=== PATIENT | female | born 1940 | race Two or more races ===

== ENCOUNTER 2024-07-19 11:40 | Inpatient (IN) | payer MEDICARE, OTHER ==
[~2024-07-19] VITALS: Ht 149.9 cm; Wt 41.3 kg
[2024-07-19 11:40] VITALS: BP 149/89
[2024-07-19 12:59] VITALS: BP 149/89
[2024-07-20] MEDS ORDERED: HYDR20VI6 IV (14:45)
[2024-07-20] MEDS ORDERED: HYDR-4209 PO (14:45)
[2024-07-20] MEDS ORDERED: DEXT50DI8 IV (14:45)
[2024-07-20] MEDS ORDERED: SODI62.58 IV (14:45)
[2024-07-20] MEDS ORDERED: FAT250EM13 IV (14:45)
[2024-07-20] MEDS ORDERED: DOCU100T2 PO (14:45)
[2024-07-20] MEDS ORDERED: MORP1SYR2 IV (14:45)
[2024-07-20] MEDS ORDERED: POLY17PO4 PO (14:45)
[2024-07-20] MEDS ORDERED: NALO0.4D4 IV (14:45)
[2024-07-20] MEDS ORDERED: CALA180L4 TP (14:45)
[2024-07-20] MEDS ORDERED: CEFT1VIA15 IV (14:45)
[2024-07-20] MEDS ORDERED: BISO5TAB20 PO (14:45)
[2024-07-20] MEDS ORDERED: BISA5TAB56 PO (14:45)
[2024-07-20] MEDS ORDERED: OLAN2.5T3 PO (14:45)
[2024-07-20] MEDS ORDERED: ACET650S13 RC (14:45)
[2024-07-20] MEDS ORDERED: BISA10SU95 RC (14:45)
[2024-07-20] MEDS ORDERED: ENOX40DI SQ (15:00)
[2024-07-20] MEDS ORDERED: INSU100V28 SQ (15:00)
[2024-07-20] MEDS ORDERED: CALAMINE LOTION 120 ML BOTTLE TP PRN (16:15)
[2024-07-20] MEDS ORDERED: DEXTROSE 50% 50 ML DISP.SYRIN IV PRN ×2 (16:15→17:00)
[2024-07-20] MEDS ORDERED: BISACODYL 10 MG SUPP.RECT RC PRN ×2 (16:15→22:15)
[2024-07-20] MEDS ORDERED: BISACODYL 5 MG PO PRN (16:15)
[2024-07-20] MEDS ORDERED: TPN IV (16:36)
[2024-07-20] MEDS ORDERED: TPN/PPN PER PHARMACY IV PRN (16:45)
[2024-07-20 16:48] VITALS: BP 125/75; TEMP 97.9; O2SAT 97
[2024-07-20] MEDS ORDERED: IV FAT EMULSIONS 20% 250 ML IV SCH (17:00)
[2024-07-20] MEDS: DOCUSATE SODIUM 100 MG/10 ML LIQUID UDC PO SCH (17:00)
[2024-07-20] MEDS ORDERED: Medication Not On Formulary EA (Docusate Sodium 100 MG) PO SCH (17:00)
[2024-07-20] MEDS: DEXTROSE 5% IV SCH (18:30)
[2024-07-20] MEDS: [UNRECOGNIZED DRUG - OTHER] IV SCH (18:30)
[2024-07-20] MEDS: BLOOD SUGAR DIAGNOSTIC 1 EACH STRIP VI SCH (18:33)
[2024-07-20 20:09] VITALS: BP 125/70; TEMP 98; O2SAT 95
[2024-07-20] MEDS: OLANZAPINE 2.5 MG TABLET PO SCH (20:48)
[2024-07-20] MEDS: CEFTRIAXONE 1 G in IV DEXTROSE 5% 50 ML IV SCH (20:53)
[2024-07-20] MEDS: ENOXAPARIN SODIUM 30 MG/0.3 ML DISP.SYRIN SUBCUT SCH (21:20)
[2024-07-20] MEDS: SODIUM PHOSPHATE MM 15 MMOL in IV NORMAL SALINE 250 ML IV ONE (22:03)
[2024-07-21 05:13] VITALS: BP 125/68; TEMP 99.1; O2SAT 95
[2024-07-21] MEDS: INSULIN REGULAR, HUMAN 1000 UNIT/10 ML VIAL SQ PRN (05:17)
[2024-07-21 06:25] LABS: BASOPHILS # (AUTO) 0.1 K/UL (0.0-0.2); BASOPHILS % (AUTO) 0.9 % (0.0-2.0); EOSINOPHILS # (AUTO) 0.2 K/uL (0.0-0.7); EOSINOPHILS % (AUTO) 1.5 % (0.0-7.0); HEMOGLOBIN 10.7 g/dL (10.9-14.3); LYMPHOCYTES # (AUTO) 1.7 K/uL (0.8-4.8); LYMPHOCYTES % (AUTO) 13.9 % (20.5-51.5); MEAN CORPUSCULAR HEMOGLOBIN 28.9 uug (24.7-32.8); MEAN CORPUSCULAR HGB CONC 34 g/dL (32.3-35.6); MEAN CORPUSCULAR VOLUME 85.9 fL (75.5-95.3); MONOCYTES # (AUTO) 1.1 K/uL (0.1-1.30); MONOCYTES % (AUTO) 8.6 % (0.0-11.0); NEUTROPHILS # (AUTO) 9.3 K/uL (1.8-8.9); NEUTROPHILS % (AUTO) 75.1 % (38.5-71.5); PLATELET COUNT (AUTO) 402 K/uL (179-408); RED BLOOD CELL COUNT(AUTO) 3.72 MIL/uL (3.63-4.92); RED CELL DISTRIBUTION WIDTH 13.5 % (12.3-17.7); WHITE BLOOD COUNT (AUTO) 12.4 K/uL (3.8-11.8)
[2024-07-21 06:28] LABS: DIFFERENTIAL COMMENT 1
[2024-07-21 06:50] LABS: THYROID STIMULATING HORMONE 1.792 mIU/mL (0.358-3.740)
[2024-07-21 07:31] LABS: IRON, SERUM 43 ug/dL (50-175)
[2024-07-21 08:00] VITALS: BP 129/69; TEMP 98.6; O2SAT 97
[2024-07-21 08:36] LABS: ALANINE AMINOTRANSFERASE 15 U/L (14-59); ALBUMIN 2.3 g/dL (3.4-5.0); ALKALINE PHOSPHATASE 78 U/L (50-136); ASPARTATE AMINOTRANSFERASE 23 U/L (15-37); BILIRUBIN,TOTAL 0.5 mg/dL (0.2-1.0); CALCIUM 8.2 mg/dL (8.5-10.1); CARBON DIOXIDE 27 mmol/L (21-32); CHLORIDE 97 mmol/L (98-107); CHOLESTEROL 157 mg/dL (<200); CREATININE 0.5 mg/dL (0.6-1.3); GLUCOSE 130 mg/dL (74-106); HDL CHOLESTEROL 43 mg/dL (40-60); MAGNESIUM 1.8 mg/dL (1.8-2.4); PHOSPHOROUS 3.9 mg/dL (2.5-4.9); POTASSIUM 3.6 mmol/L (3.5-5.1); SODIUM SERUM 135 mmol/L (136-145); TOTAL PROTEIN, SERUM 6.7 g/dL (6.4-8.2); TRIGLYCERIDES 81 MG/DL (30-150); UREA NITROGEN, BLOOD 29 mg/dL (7-18)
[2024-07-21] MEDS ORDERED: ENOXAPARIN SODIUM 40 MG/0.4 ML DISP.SYRIN SQ SCH (09:00)
[2024-07-21] MEDS: MIRALAX 17 GM POWD.PACK PO SCH (09:26)
[2024-07-21] MEDS: ACETAMINOPHEN 650 MG SUPP.RECT RC PRN (09:26)
[2024-07-21] MEDS: TPN BAG#2 IV SCH (11:27)
[2024-07-21 20:30] VITALS: BP 129/82; TEMP 98.8; O2SAT 99
[2024-07-21] MEDS: TRAMADOL HCL 50 MG TABLET PO PRN (22:00)
[2024-07-21] MEDS: TPN BAG#3 IV SCH (22:22)
[2024-07-22 06:00] VITALS: BP 114/62; TEMP 98.1; O2SAT 98
[2024-07-22 07:09] LABS: CALCIUM 8.6 mg/dL (8.5-10.1); CARBON DIOXIDE 28 mmol/L (21-32); CHLORIDE 100 mmol/L (98-107); CREATININE 0.5 mg/dL (0.6-1.3); GLUCOSE 145 mg/dL (74-106); MAGNESIUM 1.9 mg/dL (1.8-2.4); POTASSIUM 3.9 mmol/L (3.5-5.1); SODIUM SERUM 134 mmol/L (136-145); UREA NITROGEN, BLOOD 31 mg/dL (7-18)
[2024-07-22 08:00] VITALS: BP 124/64; TEMP 97.9; O2SAT 94
[2024-07-22] MEDS: IV FAT EMULSIONS 20% 250 ML IV ONE (09:35)
[2024-07-22] MEDS: NEUTRA PHOS PACKET PO ONE (16:29)
[2024-07-22 18:38] VITALS: BP 146/78; TEMP 97.5; O2SAT 97
[2024-07-22 21:43] VITALS: BP 142/48; TEMP 98.2; O2SAT 95
[2024-07-22 23:33] LABS: *BILIRUBIN,URIN NEGATIVE (NEGATIVE); *CLARITY,URINE CLEAR (CLEAR); *COLOR,URINE YELLOW (YELLOW); *KETONES,URINE NEGATIVE (NEGATIVE); *PROTEIN,URINE 1+ (NEGATIVE); *UROBILINOGEN,URINE 0.2 E.U./dl (NORMAL); LEUKOCYTE ESTERASE ,URINE NEGATIVE (NEGATIVE); NITRITE, URINE NEGATIVE (NEGATIVE); PH,URINE 5.5 (5.0-8.0); UGLUCOSE NEGATIVE (NEGATIVE)
[2024-07-22 23:34] LABS: *BLOOD, URINE TRACE (NEGATIVE)
[2024-07-22 23:45] LABS: BACTERIA,URINE FEW /HPF (NONE SEEN); MUCUS,URINE MODERATE /LPF (0-FEW); RBC,URINE 0-3 /HPF (0-3); SQUAMOUS EPITHELIAL CELL,UR MODERATE /HPF (NONE SEEN); WBC,URINE NONE SEEN /HPF (0-3)
[2024-07-23 06:46] VITALS: BP 127/74; TEMP 99; O2SAT 98
[2024-07-23 08:00] VITALS: BP 130/71; TEMP 98.1; O2SAT 98
[2024-07-23] MEDS ORDERED: BLOOD SUGAR DIAGNOSTIC 1 EACH STRIP VI SCH (11:30)
[2024-07-23] MEDS ORDERED: HYDROCODONE/APAP 5-325MG TABLET PO PRN (11:45)
[2024-07-23] MEDS ORDERED: DEXTROSE 50% 50 ML DISP.SYRIN IV PRN (12:15)
[2024-07-23] MEDS: METOPROLOL TARTRATE 25 MG TABLET PO SCH (13:45)
[2024-07-23 16:00] VITALS: BP 118/66; TEMP 98; O2SAT 96
[2024-07-23] MEDS: INSULIN REGULAR, HUMAN 1000 UNIT/10 ML VIAL SQ PRN (16:24)
[2024-07-23] MEDS: BLOOD SUGAR DIAGNOSTIC 1 EACH STRIP VI SCH (16:24)
[2024-07-23] MEDS: IV D5/ 0.9% NACL 1,000 ML IV PRN (18:54)
[2024-07-23 20:00] VITALS: BP 127/67; TEMP 99.1; O2SAT 95
[2024-07-23] MEDS: BISACODYL 5 MG TABLET.DR PO PRN (21:10)
[2024-07-24 06:30] VITALS: BP 149/78; TEMP 98.5; O2SAT 97
[2024-07-24 17:00] VITALS: BP 122/70; TEMP 99.4; O2SAT 93
[2024-07-24 20:07] VITALS: BP 130/63; TEMP 98.9; O2SAT 96
[2024-07-25 05:23] VITALS: BP 122/69; TEMP 97.8; O2SAT 94
[2024-07-25 20:00] VITALS: BP 122/57; TEMP 98.2; O2SAT 94
[2024-07-26 05:00] VITALS: BP 146/75; TEMP 98.8; O2SAT 95
[2024-07-26 07:34] LABS: BASOPHILS # (AUTO) 0.1 K/UL (0.0-0.2); BASOPHILS % (AUTO) 0.9 % (0.0-2.0); EOSINOPHILS # (AUTO) 0.1 K/uL (0.0-0.7); EOSINOPHILS % (AUTO) 2.1 % (0.0-7.0); HEMATOCRIT 32.3 % (31.2-41.9); HEMOGLOBIN 10.9 g/dL (10.9-14.3); LYMPHOCYTES # (AUTO) 1.5 K/uL (0.8-4.8); MEAN CORPUSCULAR HEMOGLOBIN 29.5 uug (24.7-32.8); MEAN CORPUSCULAR HGB CONC 34 g/dL (32.3-35.6); MEAN CORPUSCULAR VOLUME 87.5 fL (75.5-95.3); MONOCYTES # (AUTO) 0.6 K/uL (0.1-1.30); MONOCYTES % (AUTO) 9.2 % (0.0-11.0); NEUTROPHILS # (AUTO) 3.8 K/uL (1.8-8.9); NEUTROPHILS % (AUTO) 62.8 % (38.5-71.5); PLATELET COUNT (AUTO) 436 K/uL (179-408); RED CELL DISTRIBUTION WIDTH 14.5 % (12.3-17.7); WHITE BLOOD COUNT (AUTO) 6.1 K/uL (3.8-11.8)
[2024-07-26 07:40] LABS: DIFFERENTIAL COMMENT 1
[2024-07-26 07:44] LABS: CALCIUM 8.7 mg/dL (8.5-10.1); CARBON DIOXIDE 30 mmol/L (21-32); CHLORIDE 99 mmol/L (98-107); CREATININE 0.5 mg/dL (0.6-1.3); GLUCOSE 120 mg/dL (74-106); POTASSIUM 3.9 mmol/L (3.5-5.1); SODIUM SERUM 136 mmol/L (136-145); UREA NITROGEN, BLOOD 10 mg/dL (7-18)
[2024-07-26 08:00] VITALS: BP 164/69; TEMP 98; O2SAT 95
[2024-07-26 16:06] VITALS: BP_SYST 120; BP_SYST 169; BP_DIAS 65; BP_DIAS 69; TEMP 98; O2SAT 95; O2SAT 96
[2024-07-26 20:20] VITALS: BP 144/60; TEMP 98; O2SAT 94
[2024-07-27 08:00] VITALS: BP 154/75; TEMP 97.2; O2SAT 97
[2024-07-27] MEDS ORDERED: REMEDY ESSENTIAL ZINC PASTE 113 GM TOP PRN (09:45)
[2024-07-27 16:00] VITALS: BP 112/55; TEMP 97.8; O2SAT 97
[2024-07-27 21:01] VITALS: BP 133/63; TEMP 97.7
[2024-07-28 07:35] VITALS: BP 114/67; TEMP 98; O2SAT 95
[2024-07-28 20:14] VITALS: BP 119/67; TEMP 97.9; O2SAT 95
[2024-07-28] MEDS: HYDROCODONE/APAP 10-325 MG TABLET PO PRN (21:07)
[2024-07-29 06:37] VITALS: BP 164/83; TEMP 97.9; O2SAT 92
[2024-07-29 08:05] VITALS: BP 148/79; O2SAT 97
[2024-07-29 16:44] VITALS: BP 122/64; O2SAT 97
[2024-07-29 20:00] VITALS: BP 121/57; TEMP 97.8; O2SAT 93
[2024-07-30 05:40] VITALS: BP 128/83; TEMP 97.7; O2SAT 98
[2024-07-30 06:59] LABS: BASOPHILS % (AUTO) 0.5 % (0.0-2.0); EOSINOPHILS # (AUTO) 0.1 K/uL (0.0-0.7); EOSINOPHILS % (AUTO) 2.4 % (0.0-7.0); HEMATOCRIT 30.9 % (31.2-41.9); HEMOGLOBIN 10.4 g/dL (10.9-14.3); LYMPHOCYTES # (AUTO) 1.7 K/uL (0.8-4.8); LYMPHOCYTES % (AUTO) 33.6 % (20.5-51.5); MEAN CORPUSCULAR HEMOGLOBIN 29.6 uug (24.7-32.8); MEAN CORPUSCULAR HGB CONC 34 g/dL (32.3-35.6); MONOCYTES # (AUTO) 0.5 K/uL (0.1-1.30); MONOCYTES % (AUTO) 9.7 % (0.0-11.0); NEUTROPHILS # (AUTO) 2.7 K/uL (1.8-8.9); NEUTROPHILS % (AUTO) 53.8 % (38.5-71.5); PLATELET COUNT (AUTO) 430 K/uL (179-408); RED BLOOD CELL COUNT(AUTO) 3.51 MIL/uL (3.63-4.92); RED CELL DISTRIBUTION WIDTH 14.8 % (12.3-17.7); WHITE BLOOD COUNT (AUTO) 5.1 K/uL (3.8-11.8)
[2024-07-30 07:04] LABS: DIFFERENTIAL COMMENT 1
[2024-07-30 07:07] LABS: CALCIUM 8.8 mg/dL (8.5-10.1); CARBON DIOXIDE 33 mmol/L (21-32); CHLORIDE 101 mmol/L (98-107); CREATININE 0.5 mg/dL (0.6-1.3); GLUCOSE 111 mg/dL (74-106); POTASSIUM 4.2 mmol/L (3.5-5.1); SODIUM SERUM 140 mmol/L (136-145); UREA NITROGEN, BLOOD 21 mg/dL (7-18)
[2024-07-30 08:24] VITALS: BP 146/78; TEMP 97.8; O2SAT 96
[2024-07-30 09:40] VITALS: O2SAT 96
[2024-07-30 18:07] VITALS: BP 134/69; TEMP 97.7; O2SAT 97
[2024-07-30 20:00] VITALS: BP 117/67; TEMP 98.8; O2SAT 96
[2024-07-30 21:13] VITALS: BP 136/69
[2024-07-31 05:15] VITALS: BP 135/78; TEMP 97.4
[2024-07-31 10:43] VITALS: TEMP 98.7
[2024-07-31 17:36] VITALS: TEMP 98.1
[2024-07-31 20:17] VITALS: BP 152/77; TEMP 99; O2SAT 93
[2024-08-01 06:48] VITALS: BP 137/74; TEMP 98.9; O2SAT 96
[2024-08-01 06:55] VITALS: BP 137/74; TEMP 98.9; O2SAT 96
[2024-08-01 08:42] VITALS: BP 134/82; TEMP 98.2; O2SAT 97
[2024-08-01 16:21] VITALS: BP 117/67; TEMP 97.9; O2SAT 97
[2024-08-01 20:00] VITALS: BP 117/66; TEMP 98.3; O2SAT 98
[2024-08-02 06:00] VITALS: BP 117/65; TEMP 98.3; O2SAT 98
[2024-08-02 08:00] VITALS: BP 135/92; TEMP 98.5; O2SAT 96
[2024-08-02 17:00] VITALS: BP 137/53; TEMP 98.4; O2SAT 97
[2024-08-02 20:03] VITALS: BP 152/70; TEMP 97.8; O2SAT 97
[2024-08-02 20:40] VITALS: BP 144/63
[2024-08-02] MEDS: METOPROLOL TARTRATE 25 MG TABLET PO ONE (23:34)
[2024-08-03 05:30] VITALS: BP 129/74; TEMP 97.9; O2SAT 98
[2024-08-03 07:43] VITALS: BP 139/69; TEMP 97.8; O2SAT 96
[2024-08-03 07:58] LABS: BASOPHILS % (AUTO) 0.7 % (0.0-2.0); EOSINOPHILS # (AUTO) 0.2 K/uL (0.0-0.7); EOSINOPHILS % (AUTO) 4.1 % (0.0-7.0); HEMATOCRIT 33.3 % (31.2-41.9); HEMOGLOBIN 10.9 g/dL (10.9-14.3); LYMPHOCYTES # (AUTO) 1.6 K/uL (0.8-4.8); LYMPHOCYTES % (AUTO) 31.8 % (20.5-51.5); MEAN CORPUSCULAR HEMOGLOBIN 29.2 uug (24.7-32.8); MEAN CORPUSCULAR HGB CONC 33 g/dL (32.3-35.6); MONOCYTES # (AUTO) 0.6 K/uL (0.1-1.30); MONOCYTES % (AUTO) 12.2 % (0.0-11.0); NEUTROPHILS # (AUTO) 2.5 K/uL (1.8-8.9); NEUTROPHILS % (AUTO) 51.2 % (38.5-71.5); PLATELET COUNT (AUTO) 403 K/uL (179-408); RED BLOOD CELL COUNT(AUTO) 3.74 MIL/uL (3.63-4.92); RED CELL DISTRIBUTION WIDTH 15.4 % (12.3-17.7)
[2024-08-03 08:09] LABS: DIFFERENTIAL COMMENT 1
[2024-08-03 08:20] LABS: ALANINE AMINOTRANSFERASE 17 U/L (14-59); ALBUMIN 2.5 g/dL (3.4-5.0); ALKALINE PHOSPHATASE 125 U/L (50-136); ASPARTATE AMINOTRANSFERASE 23 U/L (15-37); BILIRUBIN,TOTAL 0.4 mg/dL (0.2-1.0); CALCIUM 9.3 mg/dL (8.5-10.1); CARBON DIOXIDE 30 mmol/L (21-32); CHLORIDE 103 mmol/L (98-107); CREATININE 0.5 mg/dL (0.6-1.3); GLUCOSE 109 mg/dL (74-106); MAGNESIUM 2.2 mg/dL (1.8-2.4); PHOSPHOROUS 3.3 mg/dL (2.5-4.9); POTASSIUM 4.2 mmol/L (3.5-5.1); SODIUM SERUM 139 mmol/L (136-145); TOTAL PROTEIN, SERUM 7.3 g/dL (6.4-8.2); UREA NITROGEN, BLOOD 22 mg/dL (7-18)
[2024-08-03] MEDS: METOPROLOL TARTRATE 50 MG TABLET PO SCH (08:55)
[2024-08-03 16:01] VITALS: BP 126/60; TEMP 98.3; O2SAT 95
[2024-08-03 20:00] VITALS: BP 163/88; TEMP 99.3; O2SAT 95
[2024-08-03 21:30] VITALS: BP 158/72
[2024-08-04 06:44] VITALS: BP 154/87; TEMP 97.5; O2SAT 96
[2024-08-04 08:00] VITALS: BP 132/68; TEMP 98.2; O2SAT 99
[2024-08-04 16:56] VITALS: BP 101/61; TEMP 97.2; O2SAT 96
[2024-08-04 20:00] VITALS: BP 131/69; TEMP 100.6; O2SAT 97
[2024-08-05 06:41] VITALS: BP 124/70; TEMP 98.2; O2SAT 96
[2024-08-05 07:43] VITALS: BP 138/75; TEMP 98.1; O2SAT 96
[2024-08-05 16:06] VITALS: BP 142/65; TEMP 97.9; O2SAT 97
[2024-08-05 22:19] VITALS: BP 120/78; TEMP 98; O2SAT 95
[2024-08-06 06:02] VITALS: BP 125/72; TEMP 98.2; O2SAT 97
[2024-08-06 06:08] VITALS: BP 125/72; TEMP 98.2; O2SAT 97
[2024-08-06 08:00] VITALS: BP 126/89; TEMP 97.8; O2SAT 98
[2024-08-06 16:00] VITALS: BP 122/83; TEMP 97.2; O2SAT 98
[2024-08-06 20:00] VITALS: BP 131/66; TEMP 99.2; O2SAT 97
[2024-08-07 06:00] VITALS: BP 136/41; TEMP 97.4; O2SAT 98
[2024-08-07 07:49] VITALS: BP 100/72; TEMP 97.8; O2SAT 99
[2024-08-07 16:00] VITALS: BP 100/59; TEMP 97.8; O2SAT 97
[2024-08-07 20:00] VITALS: BP 157/85; TEMP 97.6; O2SAT 95
[2024-08-08 06:42] VITALS: BP 119/70; TEMP 97.1; O2SAT 96
[2024-08-08 08:00] VITALS: BP 132/61; TEMP 97.7; O2SAT 95
[2024-08-08 17:00] VITALS: BP 118/56; TEMP 98.1; O2SAT 95
[2024-08-08 20:52] VITALS: BP 124/44; TEMP 97.8; O2SAT 95
[2024-08-09 06:02] VITALS: BP 131/71; TEMP 97.9; O2SAT 94
[2024-08-09 08:00] VITALS: BP 152/80; TEMP 97.6; O2SAT 96
[2024-08-09 08:54] VITALS: BP 152/86
[2024-08-09] MEDS ORDERED: METO50TA16 PO (13:43)
[2024-08-09] MEDS ORDERED: ACET650S13 RC (13:45)
[2024-08-09] MEDS ORDERED: CALA180L4 TP (13:45)
[2024-08-09] MEDS ORDERED: POLY17PO4 PO (13:45)
[2024-08-09] MEDS ORDERED: OLAN2.5T3 PO (13:45)
[2024-08-09] MEDS ORDERED: DOCU100T2 PO (13:45)
[2024-08-09] MEDS ORDERED: ENOX40DI SQ (13:45)
== END 2024-08-09 14:50 | disposition home health service (06) | DRG 559 ==
PROVIDERS: ADMIT Physical Medicine & Rehabilitation Pain Medicine; ATTEND Physical Medicine & Rehabilitation Pain Medicine
PROC: 05HC33Z Insertion of Infusion Device into Left Basilic Vein, Percutaneous Approach (ICD-10-PCS; principal; 2024-07-21)
DX: Z47.1 Aftercare following joint replacement surgery (principal); A41.9 Sepsis, unspecified organism; I21.A1 Myocardial infarction type 2; I26.99 Other pulmonary embolism without acute cor pulmonale; J96.01 Acute respiratory failure with hypoxia; G93.41 Metabolic encephalopathy; J69.0 Pneumonitis due to inhalation of food and vomit; E87.20 Acidosis, unspecified; E44.0 Moderate protein-calorie malnutrition; R17 Unspecified jaundice; D68.59 Other primary thrombophilia; I82.512 Chronic embolism and thrombosis of left femoral vein; N39.0 Urinary tract infection, site not specified; J98.11 Atelectasis; W18.30XD Fall on same level, unspecified, subsequent encounter; Z96.642 Presence of left artificial hip joint; F03.90 Unspecified dementia, unspecified severity, without behavioral disturbance, psychotic disturbance, mood disturbance, and anxiety; E88.09 Other disorders of plasma-protein metabolism, not elsewhere classified; I10 Essential (primary) hypertension; D50.9 Iron deficiency anemia, unspecified; R00.0 Tachycardia, unspecified; I35.1 Nonrheumatic aortic (valve) insufficiency; R13.10 Dysphagia, unspecified; R62.7 Adult failure to thrive; Z95.828 Presence of other vascular implants and grafts; R26.9 Unspecified abnormalities of gait and mobility
CPT/HCPCS: 36415; 71045; 73501; 83550; 83735; 84100; 84443; 85025; 87086; 93005; 93307; 97535-GO-CO; A4663; J0696; J1650; J1815; J3480; J3490; J7042; J7131